=== PATIENT | male | born 1980 | race Caucasian/White ===

== ENCOUNTER → 2017-10-29 | Emergency (ER) | payer OTHER ==
[2017-10-29 15:50] LABS: APPEARANCE CLEAR (CLEAR); BILIRUBIN NEGATIVE (NEGATIVE); COLOR YELLOW (YELLOW); GLUCOSE NEGATIVE (NEGATIVE); KETONE NEGATIVE (NEGATIVE); NITRITE NEGATIVE (NEGATIVE); PROTEIN NEGATIVE (NEGATIVE); UROBILINOGEN NORMAL (NORMAL)
[2017-10-29 16:08] LABS: BASOPHILS 0.2 % (0-2); HEMOGLOBIN 15.7 g/dL (13.5-17.5); IMMATURE GRANULOCYTES 0.3 % (0-5); LYMPHOCYTES 25.7 % (15-50); MCHC 34.1 g/dL (31.0-37.0); MCV 87.8 fL (80.0-100.0); MEAN PLATELET VOLUME 11.6 fL (7.4-10.4); MONOCYTES 7.3 % (2-11); NEUTROPHILS 64.5 % (40-80); PLATELET COUNT 185 10x3/uL (130-400); RBC 5.24 10x6/uL (4.20-6.10); RDW 13.5 % (11.5-14.5); WBC 9.5 10x3/uL (4.8-10.8)
[2017-10-29 16:24] LABS: ALBUMIN 3.4 g/dL (3.4-5.0); ANION GAP 13.9 mmol/L (8-16); BILIRUBIN - TOTAL 0.28 mg/dL (0.2-1.3); CALCIUM 8.2 mg/dL (8.5-10.1); CREATININE - SERUM 1.6 mg/dL (0.6-1.3); POTASSIUM - SERUM 3.9 mmol/L (3.5-5.1); PROTEIN - SERUM 6.6 g/dL (6.4-8.2)
== END | disposition home or self-care (01) ==
LOC: D.ER 15:23
PROVIDERS: Emergency Medicine
DX: N20.1 Calculus of ureter (principal); I10 Essential (primary) hypertension; F17.200 Nicotine dependence, unspecified, uncomplicated

== ENCOUNTER 2019-01-16 13:50 | Emergency (ER) | payer OTHER ==
[2019-01-16 13:54] VITALS: BMI 33.5
[2019-01-16] MEDS ORDERED: ZYLOPRIM300 MG PO (13:55)
[2019-01-16] MEDS ORDERED: AXIRON30 MG/1.5 (13:56)
[2019-01-16] MEDS ORDERED: ADDERALL 10 MG10 MG PO (13:56)
[2019-01-16] MEDS ORDERED: PRINIVIL10 MG PO (13:56)
[2019-01-16] MEDS ORDERED: INDOCIN25 MG PO (14:22)
[2019-01-16 14:54] VITALS: BP 134/86
== END 2019-01-16 14:58 | disposition home or self-care (01) ==
LOC: D.ER 13:50
DX: M10.071 Idiopathic gout, right ankle and foot (principal)

== ENCOUNTER 2019-01-26 06:44 | Emergency (ER) | payer OTHER ==
[~2019-01-26] VITALS: Ht 180.3 cm; Wt 109.1 kg
[~2019-01-26 06:44] MED LIST: ADDERALL 10 MG10 MG PO; AXIRON30 MG/1.5; INDOCIN25 MG PO; PRINIVIL10 MG PO; ZYLOPRIM300 MG PO
[2019-01-26 06:48] VITALS: Ht 180.3 cm; Wt 109.1 kg
[2019-01-26 07:36] LABS: BASOPHILS 0.2 % (0-2); HEMATOCRIT 44.4 % (42.0-54.0); HEMOGLOBIN 15.8 g/dL (13.5-17.5); IMMATURE GRANULOCYTES 0.4 % (0-5); LYMPHOCYTES 21.8 % (15-50); MCHC 35.6 g/dL (31.0-37.0); MCV 84.4 fL (80.0-100.0); MEAN PLATELET VOLUME 11.6 fL (7.4-10.4); MONOCYTES 7.2 % (2-11); NEUTROPHILS 69.4 % (40-80); PLATELET COUNT 189 10x3/uL (130-400); RBC 5.26 10x6/uL (4.20-6.10); RDW 12.9 % (11.5-14.5); WBC 11.4 10x3/uL (4.8-10.8)
[2019-01-26 07:40] LABS: ALBUMIN 3.9 g/dL (3.4-5.0); ANION GAP 12.9 mmol/L (8-16); BILIRUBIN - TOTAL 0.31 mg/dL (0.2-1.3); C-REACTIVE PROTEIN 1.2 mg/dL (0.0-0.9); CALCIUM 8.7 mg/dL (8.5-10.1); CARBON DIOXIDE 24.6 mmol/L (21.0-32.0); CREATININE - SERUM 1.3 mg/dL (0.6-1.3); POTASSIUM - SERUM 4.5 mmol/L (3.5-5.1); PROTEIN - SERUM 7.1 g/dL (6.4-8.2); URIC ACID 5.7 mg/dL (2.6-7.2)
[2019-01-26] MEDS ORDERED: PREDNISONE20 MG PO (08:36)
[2019-01-26] MEDS ORDERED: ULTRAM50 MG PO (08:36)
[2019-01-26 09:16] VITALS: BP 145/91
[2019-01-26 09:25] LABS: ERYTHROCYTE SEDIMENTATION RATE 1 mm/hr (0-15)
== END 2019-01-26 09:17 | disposition home or self-care (01) ==
LOC: D.ER 06:44
PROVIDERS: Family Medicine
DX: M25.572 Pain in left ankle and joints of left foot (principal); M10.072 Idiopathic gout, left ankle and foot

== ENCOUNTER 2019-02-06 15:55 | Emergency (ER) | payer OTHER ==
[~2019-02-06 15:55] MED LIST changes: +PREDNISONE20 MG PO; +ULTRAM50 MG PO
[2019-02-06 15:57] VITALS: BMI 33.5
[2019-02-06] MEDS ORDERED: SYNTHROID25 MCG (15:58)
[2019-02-06] MEDS ORDERED: VOLTAREN75 MG PO (18:26)
[2019-02-06] MEDS ORDERED: BACLOFEN20 M1 PO (18:26)
[2019-02-06 19:24] VITALS: BP 111/69
== END 2019-02-06 19:25 | disposition home or self-care (01) ==
LOC: D.ER 15:55
DX: M25.571 Pain in right ankle and joints of right foot (principal); M25.561 Pain in right knee

== ENCOUNTER 2019-08-01 12:36 | Emergency (ER) | payer OTHER ==
[~2019-08-01] VITALS: Ht 180.3 cm; Wt 104.5 kg
[~2019-08-01 12:36] MED LIST changes: +BACLOFEN20 M1 PO; +SYNTHROID25 MCG; +VOLTAREN75 MG PO
[2019-08-01 13:02] VITALS: Ht 180.3 cm; Wt 104.5 kg
[2019-08-01] MEDS ORDERED: VIBRAMYCIN 100100 MG PO (16:24)
[2019-08-01] MEDS ORDERED: TYLENOL W/CODEI1 TAB PO (16:24)
[2019-08-01] MEDS ORDERED: VOLTAREN75 MG PO (16:25)
[2019-08-01 16:48] VITALS: BP 140/88
== END 2019-08-01 16:48 | disposition home or self-care (01) ==
LOC: D.ER 12:36
DX: L03.317 Cellulitis of buttock (principal); I10 Essential (primary) hypertension; Z72.0 Tobacco use; E07.9 Disorder of thyroid, unspecified